=== PATIENT | female | born 1955 | race Caucasian/White ===

== ENCOUNTER 2018-05-22 01:57 | Outpatient (CLI) | payer MEDICARE, BC, SELFPAY ==
[2018-05-22 08:04] LABS: HCT 44.4 % (36.0-46.0); HGB 14.6 g/dL (12.0-15.5); Mean Corp. HGB Concentration 32.9 g/dL (32.0-36.0); Mean Corpuscular Hemoglobin 29.7 pg (27.0-33.0); Mean Corpuscular Volume 90.2 fL (80-95); Mean Platelet Volume 10.6 fL (8.0-11.0); Platelet Count 235 x1000/uL (130-400); RBC 4.92 m/cumm (4.00-5.20); RBC Distribution Width 13.2 % (11.7-14.6); White Blood Cell Count 4.94 k/cumm (4.4-10.8)
[2018-05-22 08:30] LABS: ALT 75 U/L (12-78); AST 33 U/L (15-37); Albumin 3.9 g/dL (3.4-5.0); Alkaline Phosphatase 163 U/L (46-116); Anion Gap 11.5 mmol/L (3-11); BUN 19 mg/dL (7-18); Bilirubin, Total 0.4 mg/dL (0.2-1.0); CO2 26.5 mmol/L (21.0-32.0); CREATININE 0.88 mg/dL (0.55-1.02); Calcium 9.4 mg/dL (8.5-10.1); Chloride 105 mmol/L (98-107); Cholesterol 251 mg/dL (50-200); Glucose 97 mg/dL (70-100); HDL Cholesterol 64 mg/dL (40-60); LDL CHOLESTEROL 165 mg/dL (<100); Potassium 4.4 mmol/L (3.5-5.1); Sodium 143 mmol/L (136-145); Total Protein 7.7 g/dL (6.4-8.2); Triglyceride 81 mg/dL (30-150)
[2018-05-22 14:02] LABS: GGT 317 U/L (5-55)
== END 2018-05-22 02:17 ==
PROVIDERS: PCP Family Medicine; Visit Provider Family Medicine
DX: R74.8 Abnormal levels of other serum enzymes (principal); E03.9 Hypothyroidism, unspecified; Z13.6 Encounter for screening for cardiovascular disorders
CPT/HCPCS: 36415; 80053; 80061; 83721; 85027; 82977

== ENCOUNTER 2018-05-31 01:18 | Outpatient (CLI) | payer MEDICARE, BC, SELFPAY ==
--- NOTE | 2018-05-31 07:02 | DI.US_ITS ---
SYMPTOM/DIAGNOSIS: ELEVATED ALK PHOS AND GGT, R74.8 ABDOMEN ULTRASOUND: Routine examination was performed. The aorta and IVC are unremarkable. The liver shows increased echogenicity consistent with fatty infiltration. No hepatic mass is seen. The gallbladder, common duct and spleen and kidneys are unremarkable. There is limited visualization of the head and tail of the pancreas due to body habitus and overlying bowel. The remainder of the visualized pancreas appears unremarkable. IMPRESSION: Findings consistent with hepatic steatosis.
== END 2018-05-31 01:38 ==
PROVIDERS: PCP Family Medicine; Visit Provider Family Medicine
DX: R74.8 Abnormal levels of other serum enzymes (principal); K76.0 Fatty (change of) liver, not elsewhere classified
CPT/HCPCS: 76700

== ENCOUNTER 2018-06-12 01:34 | Outpatient (CLI) | payer MEDICARE, BC, SELFPAY ==
[2018-06-12 08:27] LABS: GGT 162 U/L (5-55)
[2018-06-18 12:30] LABS: Mitochondrial Ab, M2 <0.1 U
== END 2018-06-12 01:54 ==
PROVIDERS: PCP Family Medicine; Visit Provider Family Medicine
DX: R74.8 Abnormal levels of other serum enzymes (principal); K74.3 Primary biliary cirrhosis
CPT/HCPCS: 36415; 83516; 82977

== ENCOUNTER 2019-02-12 00:40 | Outpatient (CLI) | payer MEDICARE, BC, SELFPAY ==
--- NOTE | 2019-02-12 15:10 | DI.MAMMO_ITS ---
EXAM: MG MAMMO SCREENING CLINICAL HISTORY: kurldraenG21.31. TECHNIQUE: Bilateral full field digital CC and MLO mammographic images were obtained with 3D tomosyn thesis and utilizing computer aided detection (CAD). COMPARISON: There are multiple priors with the most recent from 12/12/2016. FINDINGS: Masses/Architectural Distortion: None seen. Microcalcifications: No suspicious pleomorphic-type are seen. IMPRESSION: 1. No significant interval change with no specific features of malignancy noted. 2. Unless there is more urgent need, screening mammography is recommended, as per [employer] guidelines. ACR BI-RAD Category- 1 Negative Breast Density - Category C - Heterogeneously dense The mammogram demonstrates the patient's breast tissue is dense. Dense breast tissue is very common a nd is not abnormal but dense breast tissue can make it harder to find cancer on a mammogram. Also, de nse breast tissue may increase their breast cancer risk. This information about the result of the [facility] mogram report was provided to the patient to raise their awareness. Use this report when you speak wi th the patient about their risks for breast cancer, which includes their family history. At that time , you may recommend for more screening tests (Ultrasound or MRI) as they might be useful based on the ir risk. A negative radiographic report should not delay biopsy if a dominant or clinically suspicious mass is present. Up to ten percent of cancers are not identified on mammography. A negative report may reinforce clinical impression. Adenosis and dense breasts may obscure an underlying neoplasm. False positive reports average 6 to 10%.
--- NOTE | 2019-02-12 15:10 | DI.DEXA_ITS ---
EXAM: XR DEXA BONE DENSITY W/WO GAETANO INDICATION: xSCREENING FOR OSTEOPOROSIS Z78.0. COMPARISON: 05/03/2004 TECHNIQUE: 2D digital imaging was performed. FINDINGS: The lateral spine film shows no compression deformities. Evaluation of the left hip shows a total T-score of -1.0 and Z-score 0.3, this is within normal limit s. This compares with a total T-score of 0.2 from 2004. Evaluation of the lumbar spine shows a total T-score of -0.1 and a Z-score of 1.8. This is within no rmal limits. This compares with a total T-score of 1.2 from 2004. IMPRESSION: No evidence of osteoporosis.
== END 2019-02-12 01:00 ==
PROVIDERS: PCP Family Medicine; Visit Provider Family Medicine
DX: Z12.31 Encounter for screening mammogram for malignant neoplasm of breast (principal); Z13.820 Encounter for screening for osteoporosis; Z78.0 Asymptomatic menopausal state
CPT/HCPCS: 77063; 77067; 77080

== ENCOUNTER → 2019-03-29 08:49 | Outpatient (BNVA) | payer MEDICARE, BC, SELFPAY | PROVIDERS: PCP Family Medicine; Referring Provider Family Medicine; Visit Provider Physical Therapy Assistant | DX: Z12.11 Encounter for screening for malignant neoplasm of colon (principal) ==

== ENCOUNTER 2019-04-22 07:15 | Day surgery (SDC) | payer MEDICARE, BC, SELFPAY ==
[2019-04-22 07:40] VITALS: BP 137/82; PULSE 105; RESP 18; TEMP 36.3; O2SAT 96
[2019-04-22] MEDS: Lactated Ringers 1,000 ML 80 ML IV (07:50)
--- NOTE | 2019-04-22 08:19 | W.COLOREPORT ---
Date of service: 04/22/19 Time of Service: 09:18 Colonoscopy Report Date of procedure: 04/22/19 Pre-op diagnosis general: Colon Cancer Screening Post-op diagnosis procedure note: other (Landry-diverticulosis, polyps, internal hemorrhoids) Procedure: Colonoscopy with bx Surgeon: Blanca Kirby Anesthesia proc note operative: other (General/ ASA 2/ Khushboo Dominguez, KATHARINE) Estimated blood loss (mL): 5 Pathology: other (Transverse bx, sigmoid polyp) Complications: None Disposition: same day Indications: Mrs. Chatman is a pleasant 64-year-old female who was seen in the office for screening colonoscopy. Her last colonoscopy was in 2002 and was normal. She has no family history of colon cancer. Risks, benefits and complications have been reviewed. Complications include but are not limited to bleeding, pain, perforation, missed small lesion/polyp, sore throat, aspiration and adverse reaction to the medications. Questions were entertained and answered to their satisfaction and they wished to proceed. No guarantees were given or implied. Prep: Miralax/Dulcolax Procedure Start Time: 08:38 Procedure End Time: 09:14 Retraction Time: 25 minutes Findings: Landry-diverticulosis Sigmoid polyp ? Transverse polyp Procedure Description: After informed consent was obtained the patient was taken to the procedure room and placed in a left decubitous position. Monitors were applied and a time out was done. The patients name, date of , procedure, allergies to medications and metal in their body was reviewed. The patient was then sedated. Once sedated and comfortable a rectal exam was done. External exam was normal. Internal exam revealed a normal sphincter tone and no palpable masses. The scope was then introduced and retro-flexed. No internal hemorrhoids were identified. The scope was then advanced to the cecum without difficulty. The TI and appendiceal orifice were identified. The prep was adequate. The scope was then slowly retracted over 25 minutes back into the rectum. Polyps were removed in the transverse colon and in the sigmoid colon with cold forceps. There was landry-diverticulosis noted. The scope was removed and the patient was woken up and taken back to Same day surgery in stable condition. The patient tolerated the procedure well and there were no immediate complications. Follow up: The patient should follow up in 5 years unless they develop changes in bowel habits or other new gastrointestinal complaints.
--- NOTE | 2019-04-22 08:20 | W.PM.DSUDISC ---
Discharge Plan Disposition Patient Disposition: HOME Condition: Good Discharge Details Reason For Visit: Colonoscopy Attending Provider: Blanca Kirby Primary Care Provider: Prashant Rodrigues Home Meds and New Rx's Prescriptions: Continued trazodone 50 mg tablet 50 mg PO HS Qty: 90 RF: 4 levothyroxine 137 mcg capsule 137 mcg PO DAILY Qty: 90 RF: 3 venlafaxine [Effexor XR] 150 mg capsule,extended release 24hr 150 mg PO DAILY Qty: 90 RF: 3 Discontinued polyethylene glycol 3350 17 gram/dose powder 238 g PO ONCE Qty: 238 RF: 0 bisacodyl [Dulcolax (bisacodyl)] 5 mg tablet,delayed release (DR/EC) 5 mg PO ONCE Qty: 4 RF: 0 Discharge Instructions Instructions: Diverticulosis (DC) Additional Instructions: Findings: Diverticulosis Polyps x 2 (most likely benign) Follow up: Depends on final pathology Please call if you develop: fevers >101.5 Nausea or Vomiting Abdominal pain that is not transient DAY SURGERY UNIT POST ENDOSCOPY INSTRUCTIONS 1. Because there will be medication in your system for the next 24 hours, you may feel a little sleepy. Your coordination will be affected. Therefore: a. Do not drive or operate dangerous equipment for 24 hours. b. Do not drink alcohol beverages for 24 hours (not even beer). c. Plan to go home and rest for the day. 2. Generally there are no restrictions on your activity after a day or so has gone by, but you may feel a bit fatigued for a few days. 3 After you arrive home you may have a light meal and return to a normal diet as you can tolerate it without feeling sick to your stomach. 4. After surgery, you may feel pain or discomfort. This should be only transient, but if it persists please contact your doctor. 5. If there are any questions regarding the findings of your procedure, please feel free to contact your doctor. 6. If you are unable to contact your doctor with a problem, contact the hospital at [phone]. 7. Continue all your regular medications unless directed otherwise. I understand the above instructions and have no questions. Signature of Patient or Responsible Adult Escort Date/Time Name of Responsible Adult Escort Signature of Nurse Date/Time Activity:: Activity as Tolerated Diet:: High Fiber Diet Discharge Orders Discharge Orders: Discharge Order (Routine); Ordered 04/22/19 Ordered By: Blanca Kirby DS: Diagnosis Discharge Diagnosis (1) S/P colonoscopy: Status: Acute
--- NOTE | 2019-04-22 09:07 | BOWEL_PTH ---
PATIENT: Haydee Chatman LOC: [facility] U#:[id number] AGE/SX: 64/F ROOM: RE04/22/[address]: Blanca Kirby MD : [id number] BED: DIS: 04/22/2019 SPEC #: [id number] RECD: 04/22/19 12:59 STATUS: [place] REQ #: [id number] NETTIE: 04/22/19 09:[address]: Blanca Kirby DEPT: Surgical Specimen RECD BY: Jodi Huddleston ENTERED: 04/22/19 13:00 SP TYPE: Bowel OTHR DR: Prashant Rodrigues MD Tissues: 1 - BIOPSY BOWEL 2 - BIOPSY BOWEL Procedures: GROSS AND MICRO LEVEL 4 Comments: [id number]
[2019-04-22 09:55] VITALS: BP 112/74; PULSE 61; RESP 18; TEMP 36.1; O2SAT 95
== END 2019-04-22 10:25 | disposition home or self-care (01) ==
PROVIDERS: PCP Family Medicine; Visit Provider Surgery
PROC: 0DJD8ZZ Inspection of Lower Intestinal Tract, Via Natural or Artificial Opening Endoscopic (ICD-10-PCS; CPT 45378; principal; 2019-04-22 08:30)
DX: Z12.11 Encounter for screening for malignant neoplasm of colon (principal); D12.3 Benign neoplasm of transverse colon; K63.5 Polyp of colon; K57.30 Diverticulosis of large intestine without perforation or abscess without bleeding
CPT/HCPCS: 45380; 88305; J2405

== ENCOUNTER 2020-01-10 00:38 | Outpatient (CLI) | payer MEDICARE, BC, SELFPAY ==
[2020-01-10 13:30] LABS: ALT 37 U/L (14-59); AST 20 U/L (15-37); Albumin 4.1 g/dL (3.4-5.0); Alkaline Phosphatase 105 U/L (46-116); Anion Gap 1.8 mmol/L (3-11); BUN 19 mg/dL (7-18); Bilirubin, Total 0.4 mg/dL (0.2-1.0); CO2 31.2 mmol/L (21.0-32.0); CREATININE 0.85 mg/dL (0.55-1.02); Calcium 9.2 mg/dL (8.5-10.1); Calculated LDL 168 mg/dL (<100); Chloride 109 mmol/L (98-107); Cholesterol 239 mg/dL (<200); Glucose 98 mg/dL (74-106); HDL Cholesterol 53 mg/dL (40-60); Potassium 4.7 mmol/L (3.5-5.1); Sodium 142 mmol/L (136-145); Total Protein 7.4 g/dL (6.4-8.2); Triglyceride 91 mg/dL (<150)
== END 2020-01-10 00:58 ==
PROVIDERS: PCP Family Medicine; Visit Provider Family Medicine
DX: E03.9 Hypothyroidism, unspecified (principal)
CPT/HCPCS: 36415; 80053; 80061; 84443

== ENCOUNTER 2020-09-01 02:20 | Outpatient (CLI) | payer MEDICARE, BC, SELFPAY ==
[2020-09-02 11:19] LABS: COVID-19 RT-PCR UVMMC Result Negative (Negative)
== END 2020-09-01 02:21 | disposition home or self-care (01) ==
LOC: LBO 02:20
PROVIDERS: PCP Family Medicine; Visit Provider Nurse Practitioner Family
DX: Z20.822 Contact with and (suspected) exposure to COVID-19 (principal)
CPT/HCPCS: U0003; U0005

== ENCOUNTER 2021-02-01 02:43 | Outpatient (CLI) | payer MEDICARE, BC, SELFPAY ==
[2021-02-01 09:30] LABS: ALT 33 U/L (14-59); AST 22 U/L (15-37); Alkaline Phosphatase 102 U/L (46-116); Anion Gap 7.4 mmol/L (3-11); BUN 15 mg/dL (7-18); Bilirubin, Total 0.5 mg/dL (0.2-1.0); CO2 29.6 mmol/L (21.0-32.0); CREATININE 0.9 mg/dL (0.55-1.02); Calcium 9.2 mg/dL (8.5-10.1); Calculated LDL 153 mg/dL (<100); Chloride 109 mmol/L (98-107); Cholesterol 227 mg/dL (<200); Glucose 99 mg/dL (74-106); HDL Cholesterol 53 mg/dL (40-60); Potassium 4.8 mmol/L (3.5-5.1); Sodium 146 mmol/L (136-145); Total Protein 7.6 g/dL (6.4-8.2); Triglyceride 108 mg/dL (<150)
[2021-02-02 10:28] LABS: Hepatitis C Ab w Rflx HCV PCR Negative (Negative)
== END 2021-02-01 02:44 | disposition home or self-care (01) ==
LOC: LBO 02:43
PROVIDERS: PCP Family Medicine; Visit Provider Family Medicine
DX: E03.9 Hypothyroidism, unspecified (principal); E78.00 Pure hypercholesterolemia, unspecified; K76.0 Fatty (change of) liver, not elsewhere classified
CPT/HCPCS: 36415; 80053; 80061; 86803; 84443

== ENCOUNTER 2021-02-22 00:53 | Outpatient (CLI) | payer MEDICARE, BC, SELFPAY ==
--- NOTE | 2021-02-22 06:30 | DI.US_ITS ---
Exam(s) US ABDOMEN EXAM: US ABDOMEN INDICATION: RUQ fullness,RUQ ABD PAIN,STEATOSIS OF LIVER, R10.11,K76.0 COMPARISON: US US ABDOMEN from 05/31/2018 TECHNIQUE: Ultrasound abdomen performed using standard protocol FINDINGS: Abdominal ultrasound was performed according to the usual protocol. The liver is normal in size and shape. No focal hepatic lesion seen. There is no evidence of cholelithiasis or biliary dilatation. No gallbladder wall thickening or peric holecystic fluid collection. Pancreas appears intact as visualized. Spleen is unremarkable in appearance with no focal lesion. Kidneys are normal in size and shape. No renal mass, hydronephrosis, or nephrolithiasis. Abdominal aorta and IVC are of normal diameter. IMPRESSION: Negative abdominal ultrasound .
== END 2021-02-22 01:13 ==
PROVIDERS: PCP Family Medicine; Visit Provider Family Medicine
DX: K76.0 Fatty (change of) liver, not elsewhere classified (principal); R10.11 Right upper quadrant pain
CPT/HCPCS: 76700

== ENCOUNTER 2022-01-12 02:37 | Outpatient (CLI) | payer MEDICARE, BC, SELFPAY ==
[2022-01-12 12:30] LABS: Abs Immature Grans 0.06 10^3/uL (0.0-0.06); Absolute Basophil Count 0.04 10^3/uL (0.0-0.2); Absolute Eosinophil Count 0.24 10^3/uL (0.0-0.7); Absolute Lymphocyte Count 2.01 10^3/uL (1.2-3.4); Absolute Monocyte Count 0.47 10^3/uL (0.1-0.8); Absolute Neutrophil Count 2.69 10^3/uL (1.2-6.7); Basophils % 0.7; Eosinophils % 4.4; HCT 40.8 % (36.0-46.0); HGB 13.6 g/dL (11.2-15.7); Immature Grans % 1.1; Lymphocytes % 36.5; MCH 29.5 pg (27.0-33.0); MCHC 33.3 % (32.0-36.0); MCV 89 fL (80-95); MPV 11.1 fL (8.0-11.0); Monocytes % 8.5; Neutrophils % 48.8; Platelet Count 222 10^3/uL (130-400); RBC 4.61 10^6/uL (3.93-5.22); RDW 12.6 % (11.7-14.6); RDW-SD 41.1 fL; WBC 5.51 10^3/uL (4.4-10.8)
[2022-01-12 13:04] LABS: ALT 32 U/L (14-59); AST 26 U/L (15-37); Albumin 3.8 g/dL (3.4-5.0); Alkaline Phosphatase 80 U/L (46-116); Anion Gap 9.2 mmol/L (3-11); BUN 20 mg/dL (7-18); Bilirubin, Total 0.4 mg/dL (0.2-1.0); CO2 25.8 mmol/L (21.0-32.0); CREATININE 0.8 mg/dL (0.55-1.02); Calculated LDL 123 mg/dL (<100); Chloride 109 mmol/L (98-107); Cholesterol 201 mg/dL (<200); Estimated GFR 80.21 (mL/min/1.73m2); Glucose 93 mg/dL (74-106); HDL Cholesterol 63 mg/dL (40-60); Potassium 4.1 mmol/L (3.5-5.1); Sodium 144 mmol/L (136-145); Total Protein 7.5 g/dL (6.4-8.2); Triglyceride 75 mg/dL (<150)
== END 2022-01-12 02:38 | disposition home or self-care (01) ==
LOC: LOS 02:38
PROVIDERS: PCP Family Medicine; Visit Provider Family Medicine
DX: E03.9 Hypothyroidism, unspecified (principal); D64.9 Anemia, unspecified; K76.0 Fatty (change of) liver, not elsewhere classified; Z00.00 Encounter for general adult medical examination without abnormal findings; E78.00 Pure hypercholesterolemia, unspecified
CPT/HCPCS: 36415; 80053; 80061; 84443; 85025

== ENCOUNTER → 2022-02-21 01:29 | Outpatient (CLI) | payer MEDICARE, BC, SELFPAY ==
--- NOTE | 2022-02-21 06:45 | DI.MAMMO_ITS ---
Exam(s) MAMMO SCREENING EXAM: MAMMO SCREENING CLINICAL HISTORY: screening,z12.39 TECHNIQUE: Mammograms were interpreted according to the usual protocol including computer analysis w [employer] CAD system, tomosynthesis and C-view imaging. COMPARISON: 2012 through 2018 FINDINGS: The breasts are composed of heterogeneously dense fibroglandular densities, Breast Density category C . No suspicious masses or suspicious microcalcifications are seen. There are stable benign-appearing n odules bilaterally. No skin thickening or abnormal axillary lymph nodes are seen. There has been no significant change from prior exams. IMPRESSION: BI-RADS Category 2 - Negative Mammogram with benign findings. Yearly screening mammography is recommended. Breast Density Category C, heterogeneously Dense. The mammogram demonstrates the patient's breast tissue is dense. Dense breast tissue is very common a nd is not abnormal but dense breast tissue can make it harder to find cancer on a mammogram. Also, de nse breast tissue may increase breast cancer risk. This information about the result of the mammogram report was provided to the patient to raise their awareness. Use this report when you speak with the patient about their risks for breast cancer, which includes their family history. At that time, you may recommend additional screening tests (Ultrasound or MRI) as they might be useful based on their r isk. A negative radiographic report should not delay biopsy if a dominant or clinically suspicious mass is present. Up to ten percent of cancers are not identified on mammography. A negative report may reinforce clinical impression. Adenosis and dense breasts may obscure an underlying neoplasm. False positive reports average 6 to 10%.
== END ==
PROVIDERS: PCP Family Medicine; Visit Provider Family Medicine
DX: Z12.31 Encounter for screening mammogram for malignant neoplasm of breast (principal)
CPT/HCPCS: 77063; 77067

== ENCOUNTER → 2022-08-04 13:21 | Outpatient (BNVA) | payer MEDICARE, BC, SELFPAY | PROVIDERS: PCP Family Medicine; Referring Provider Family Medicine; Visit Provider Physical Therapy Assistant | DX: Z12.11 Encounter for screening for malignant neoplasm of colon (principal); Z86.010 Personal history of colon polyps ==

== ENCOUNTER 2023-01-12 03:35 | Outpatient (CLI) | payer MEDICARE, BC, SELFPAY ==
[2023-01-12 11:44] LABS: TSH (W/Ref FT4) 1.33 uIU/mL (0.36-3.74)
== END 2023-01-12 03:36 | disposition home or self-care (01) ==
LOC: LBO 03:35
PROVIDERS: PCP Family Medicine; Visit Provider Family Medicine
DX: E03.9 Hypothyroidism, unspecified (principal)
CPT/HCPCS: 36415; 84443

== ENCOUNTER → 2023-05-25 13:41 | Outpatient (BNVA) | payer MEDICARE, BC, SELFPAY | PROVIDERS: PCP Family Medicine; Referring Provider Family Medicine; Visit Provider Physical Therapy Assistant | DX: Z12.11 Encounter for screening for malignant neoplasm of colon (principal); Z86.010 Personal history of colon polyps ==

== ENCOUNTER 2023-06-02 09:01 | Day surgery (SDC) | payer MEDICARE, BC, SELFPAY ==
--- NOTE | 2023-05-29 15:48 | DSE_ITS ---
DS: Diagnosis Discharge Diagnosis (1) Serrated adenoma of colon: Status: Acute Asessment and Plan: The patient is seen and examined after their colonoscopy.? The patient has been able to pass gas.? They are not having abdominal pain.? They have been able to tolerate liquids and a snack.? They do not have any nausea or vomiting.? They are not having any chest pain or shortness of breath.??? They are not having any rectal bleeding. Their vital signs have been stable-see nursing notes. We discussed findings during their colonoscopy, and any biopsies that were done/polyps that were removed. The patient will be sent a letter with any biopsy results, and when to repeat the colonoscopy.-see discharge instructions. Patient was given explicit instructions to follow-up regarding colonoscopy-refer to discharge instructions.? We reviewed resumption of medications. Patient verbalized understanding and discharged in stable and satisfactory condition- See nursing notes. (2) Esophageal reflux: Status: Chronic (3) Hypothyroidism: Status: Chronic (4) Diverticulosis of colon without diverticulitis: (5) Internal hemorrhoids without complication: (6) Anxiety: (7) History of alcohol dependence: Discharge Plan Disposition Patient Disposition: Home Condition: Good Discharge Details Reason For Visit: colon scope Attending Provider: Gladys Sharma Primary Care Provider: Amber Toney Home Meds and New Rx's Prescriptions: Continued trazodone 50 mg tablet 50 mg PO HS PRN (Reason: insomnia) Qty: 90 3RF venlafaxine [Effexor XR] 150 mg capsule,extended release 24hr 150 mg PO DAILY Qty: 90 3RF levothyroxine [Synthroid] 137 mcg tablet 137 mcg PO DAILY Qty: 90 3RF Discontinued polyethylene glycol 3350 17 gram/dose powder 238 g PO ONCE Qty: 238 0RF Rx Instructions: take per colonoscopy instructions bisacodyl [Dulcolax (bisacodyl)] 5 mg tablet,delayed release (DR/EC) 5 mg PO ONCE Qty: 8 0RF Rx Instructions: take per colonoscopy instructions Discharge Instructions Additional Instructions: DSU Colonoscopy Post- Op Instructions Instructions for Everyone who is given Anesthesia: For your safety, please do the following for the next twenty-four (24) hours: *Do Not operate a motor vehicle (car, truck, motorcycle, etc.) *Do Not drink alcoholic beverages or use any recreational drugs for the first 24 hours or while taking pain medications. The medications in your body may have a reaction that can be dangerous. *Do Not make any important decisions or sign any important papers. Findings: Follow up: 1. No lifting over 20 pounds or strenuous activity for the first 24 hours after your procedure. After 24 hours there are no restrictions on your activity but you may feel fatigued for a few days. 2. After you arrive home you may have a light meal and return to your normal diet as you can tolerate it without feeling sick to your stomach. 3. You may have a bloated, gaseous feeling in your belly (abdomen) after a colonoscopy. Passing gas and belching will help. Walking or lying down on your left side with your knees flexed may relieve the discomfort. Call the office at [phone] (Office) or [phone] (Hospital) right away if you notice any of the following: a.Vomiting of blood or ?coffee ground stools?. b.Rectal bleeding 1Tbsp, blood clots or continuous bleeding. c.Severe belly (abdominal) pain. d.A hard distended belly (abdomen) and an inability to pass gas. 4. Please don?t expect to have a normal BM (bowel movement) for 2-3 days after your procedure. 5. If there are questions regarding the findings of your procedure, please co ntact your doctor 6. If you are unable to contact your doctor with a problem, contact the hospital at [phone]. 7. Continue all your regular medications unless directed otherwise. I understand the above instructions and have no questions. Signature of Patient or Adult Escort Name of Responsible Adult Escort Signature of Nurse Date/Time Activity:: see above Diet:: see above Discharge Orders Discharge Orders: Discharge Order (Routine); Ordered 06/02/23 Ordered By: Gladys Sharma DS: Summary Quality:SDOH Health Related Social Needs: No Data to Display PFSH All Active Problems (Updated 05/29/23 @ 15:49 by Gladys Sharma, DO) Serrated adenoma of colon (Acute) Lipoma of face (Acute) Screening for colon cancer (Acute) Depressive disorder (Chronic) incest survivor; managed with venlafaxine Esophageal reflux (Chronic) Hypothyroidism (Chronic 11/05/12) Medical History Anxiety Diverticulosis of colon without diverticulitis History of alcohol dependence (12/26/17) Internal hemorrhoids without complication Rosacea Surgical History History of bilateral ligation of fallopian tubes S/P colonoscopy (~04/22/19) [address] [place] [address] Status post dilation and curettage Family History Mother , 59 Adopted Bladder cancer Father , 85 Heart disease CML (chronic myelocytic leukemia) Brother Essential hypertension Maternal Grandfather Heart disease Maternal Grandmother , childbirth No problems noted. Brother Essential hypertension Heart disease Hyperlipidemia Brother No problems noted. Paternal Grandfather , 71 Diabetes Heart disease Paternal Grandmother , 80s Cancer blood Son No problems noted. Daughter No problems noted. 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 Pets and animals: No Sexually active: Yes Do you think of yourself as: straight/heterosexual Current gender identity: female and decline to answer What is your relationship status?: How often do you talk on the phone with friends or family?: twice per week How often do you get together with friends or relatives?: once per week How often do you attend rastafari or voodoo services?: 1-3 times per year Do you belong to any clubs or organized social groups?: no Panel score (0-1 are the most socially isolated patients): 2 NHANES result reviewed/action taken: Yes What type of physical activity do you participate in: none Duration: 15-30 minutes/day Frequency: 3-4 times per week Alcira/Samaritan: Uatsdin Special alcira needs: No Seatbelt use: always Helmet use: Yes Helmet use: never Drive intox or ride w/intox minibus driver: No Water heater temp set <120 deg: Yes Working smoke detector in home: Yes Fire extinguisher in home: Yes Carbon monox detector in home: Yes Firearms in home: No Do you feel safe at home: Yes Do you feel safe in your relationship?: Yes Female Reproductive History Menstrual Menopause type: natural Date of menopause: 05/15/03 History History 2 Para Hx # Term Pregnancies 2 Multiple births Hx # Pregnancies Ectopic pregnancies AB induced Hx Number of Living Children AB spontaneous
--- NOTE | 2023-05-29 15:50 | COLE_ITS ---
Colonoscopy Report Pre-op diagnosis general: Serrated adenoma in 2019 Surgeon: Gladys Sharma Anesthesia Type: General:No Airway Complications: None Disposition: same day Prep: Miralax/Dulcolax Procedure Description: After informed consent was obtained the patient was taken to the procedure room and placed in a left decubitous position. Monitors were applied and a time out was done. The patients name, date of , procedure, allergies to medications and metal in their body was reviewed. The patient was then sedated. Once sedated and comfortable a rectal exam was done. External exam was normal. Internal exam revealed a normal sphincter tone and no palpable masses. The prostate []. The scope was then introduced and retrofelexed. [] internal hemorrhoids were identified. The scope was then advanced to the cecum [] difficulty. The TI and appendiceal orifice were identified. The prep was []. The scope was then slowly retracted over [] minutes back into the rectum. Polyps were removed at []. The scope was removed and the patient was woken up and taken back to Same day surgery in stable condition. The patient tolerated the procedure well and there were no immediate co mplications. Follow up: The patient should follow up in [] years unless they develop changes in bowel habits or other new gastrointestinal complaints.
--- NOTE | 2023-06-01 10:23 | PDOC.DSDIS_ITS ---
Date of service: 06/02/23 Time of Service: 11:05 Discharge Plan Disposition Patient Disposition: Home Condition: Good Discharge Details Reason For Visit: colon scope Attending Provider: Gladys Sharma Primary Care Provider: Amber Toney Home Meds and New Rx's Prescriptions: New metaxalone 800 mg tablet 800 mg PO QID PRNQty: 30 0RF Continued trazodone 50 mg tablet 50 mg PO HS PRN (Reason: insomnia) Qty: 90 3RF venlafaxine [Effexor XR] 150 mg capsule,extended release 24hr 150 mg PO DAILY Qty: 90 3RF levothyroxine [Synthroid] 137 mcg tablet 137 mcg PO DAILY Qty: 90 3RF Discontinued polyethylene glycol 3350 17 gram/dose powder 238 g PO ONCE Qty: 238 0RF Rx Instructions: take per colonoscopy instructions bisacodyl [Dulcolax (bisacodyl)] 5 mg tablet,delayed release (DR/EC) 5 mg PO ONCE Qty: 8 0RF Rx Instructions: take per colonoscopy instructions Discharge Instructions Additional Instructions: DSU Colonoscopy Post- Op Instructions Instructions for Everyone who is given Anesthesia: For your safety, please do the following for the next twenty-four (24) hours: *Do Not operate a motor vehicle (car, truck, motorcycle, etc.) *Do Not drink alcoholic beverages or use any recreational drugs for the first 24 hours or while taking pain medications. The medications in your body may have a reaction that can be dangerous. *Do Not make any important decisions or sign any important papers. Findings: small polyp diverticula Neck: alternate ibuprofen and tylenol ibuprofen 600mg w/ food every 6hrs tylenol 1000mg every 8hrs skelaxin every 6hrs as needed ice Follow up: My office will send you a letter in 2 to 3 weeks time with the results of the biopsy and when we want you to repeat the colonoscopy, most likely 5 years time. 1. No lifting over 20 pounds or strenuous activity for the first 24 hours after your procedure. After 24 hours there are no restrictions on your activity but you may feel fatigued for a few days. 2. After you arrive home you may have a light meal and return to your normal diet as you can tolerate it without feeling sick to your stomach. 3. You may have a bloated, gaseous feeling in your belly (abdomen) after a colonoscopy. Passing gas and belching will help. Walking or lying down on your left side with your knees flexed may relieve the discomfort. Call the office at [phone] (Office) or [phone] (Hospital) right away if you notice any of the following: a.Vomiting of blood or ?coffee ground stools?. b.Rectal bleeding 1Tbsp, blood clots or continuous bleeding. c.Severe belly (abdominal) pain. d.A hard distended belly (abdomen) and an inability to pass gas. 4. Please don?t expect to have a normal BM (bowel movement) for 2-3 days after your procedure. 5. If there are questions regarding the findings of your procedure, please contact your doctor 6. If you are unable to contact your doctor with a problem, contact the hospital at [phone]. 7. Continue all your regular medications unless directed otherwise. I understand the above instructions and have no questions. Signature of Patient or Adult Escort Name of Responsible Adult Escort Signature of Nurse Date/Time Activity:: see above Diet:: see above Discharge Orders Discharge Orders: Discharge Order (Routine); Ordered 06/02/23 Ordered By: Gladys Sharma DS: Diagnosis Discharge Diagnosis (1) Serrated adenoma of colon: Status: Acute (2) Esophageal reflux: Status: Chronic (3) Hypothyroidism: Status: Chronic (4) Diverticulosis of colon without diverticulitis: Asessment and Plan: The patient is seen and examined after their colonoscopy.? The patient has been able to pass gas.? They are not having abdominal pain.? They have been able to tolerate liquids and a snack.? They do not have any nausea or vomiting.? They are not having any chest pain or shortness of breath.??? They are not having any rectal bleeding. Their vital signs have been stable-see nursing notes. We discussed findings during their colonoscopy, and any biopsies that were done/polyps that were removed. The patient will be sent a letter with any biopsy results, and when to repeat the colonoscopy.-see discharge instructions. Patient was given explicit instructions to follow-up regarding colonoscopy-refer to discharge instructions.? We reviewed resumption of medications. Patient verbalized understanding and discharged in stable and satisfactory condition- See nursing notes. (5) Internal hemorrhoids without complication: (6) Anxiety:
--- NOTE | 2023-06-01 10:23 | COLE_ITS ---
Date of service: 06/02/23 Time of Service: 10:30 Colonoscopy Report Date of procedure: 06/02/23 Pre-op diagnosis general: Serrated adenoma Post-op diagnosis procedure note: other (pandiverticula/polyp/I. hemorrhoids ) Surgeon: Gladys Sharma Anesthesia Type: General:No Airway Estimated blood loss (mL): 1 Pathology: other Complications: None Disposition: same day Prep: Miralax/Dulcolax Retraction Time: 12 Procedure Description: After informed consent was obtained the patient was taken to the procedure room and placed in a left decubitous position. Monitors were applied and a time out was done. The patients name, date of , procedure, allergies to medications and metal in their body was reviewed. The patient was then sedated. Once sedated and comfortable a rectal exam was done. External exam was normal. Inte rnal exam revealed a normal sphincter tone and no palpable masses. The scope was then introduced and retrofelexed. No Internal hemorrhoids were identified, she does have some internal hemorrhoidal tags. The scope was then advanced to the cecum w/out difficulty. The TI and appendiceal orifice were identified. The prep was BBPS 3 in all segments for a total of 9. She had pandiverticular disease that extends all the way over to the cecum. There is no signs of active bleeding or infection. She had a 0.50 cm polyp at 50 cm. This is removed with a cold biting forcep. All specimen is retrieved and no bleeding is noted. There are no AVMs noted. The mucosa is pink and healthy with a normal vascular pattern. The scope was then slowly retracted over 12 minutes back into the rectum. The scope was removed and the patient was woken up and taken back to Same day surgery in stable condition. The patient tolerated the procedure well and there were no immediate complications. Follow up: The patient should follow up in 5 years unless they develop changes in bowel habits or other new gastrointestinal complaints.
[2023-06-02 09:23] VITALS: BP 141/79; PULSE 87; RESP 16; TEMP 36.6; O2SAT 96
[2023-06-02] MEDS: Lactated Ringers 1,000 ML 80 ML IV (09:26)
--- NOTE | 2023-06-02 09:35 | W.ANESPRE ---
General Info Date of Service Date Performed: 06/02/23 Height: 5 ft 7 in Weight: 73.6 kg Body Mass Index (BMI): 25.4 Surgical Procedure: Operation Date: 06/02/23 09:50 Proposed Procedure Side Surgeon lala Sharma, Meds Allergies and Home Medications Allergies Allergy/AdvReac Type Severity Reaction Status Date / Time iopamidol AdvReac Intermediate VOMITING Verified 06/02/23 09:12 Home Medication Medication Instructions Recorded trazodone 50 mg tablet 50 mg PO HS PRN insomnia #90 04/19/22 tab-caps venlafaxine 150 mg 150 mg PO DAILY #90 caps 10/03/22 capsule,extended release 24 hr (Effexor XR) Synthroid 137 mcg tablet 137 mcg PO DAILY #90 tabs 03/29/23 (levothyroxine) Current Visit Medications: Current Medications Generic Name Dose Route Start Last Admin Trade Name Freq PRN Reason Stop Dose Admin Hyoscyamine Sulfate 0.125 mg 06/02/23 03:40 Hyoscyamine 0.125 Mg Sl/Oral/Chew SL 07/02/23 03:39 DIRECTED PRN Ringer's Solution 1,000 mls @ 80 mls/hr 06/02/23 06:00 06/02/23 09:26 IV 06/02/23 23:59 80 mls/hr INFUSION RIRI Administration IV Miscellaneous Supplies 1 each 06/02/23 06:00 Iv Access IV 06/02/23 23:59 DIRECTED RIRI Ondansetron HCl 4 mg 06/02/23 03:40 Ondansetron 4 Mg/2 Ml Vial IVP 07/02/23 03:39 Q4H PRN PRN Nausea / Vomiting Sodium Chloride 0 ml 06/02/23 06:00 Normal Saline Flush 10 Ml Syr IV 06/02/23 23:59 PRN PRN Sodium Chloride 0 ml 06/02/23 06:00 Normal Saline 10 Ml Vial IJ 06/02/23 23:59 DIRECTED PRN Sterile Water 0 ml 06/02/23 06:00 Water,Injection,Sterile 10 Ml Vial IJ 06/02/23 23:59 DIRECTED PRN PFSH Active Problems Active Problems: Problem Status Onset Code Serrated adenoma of colon D12.6 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 Screening for colon cancer Z12.11 Depressive disorder F32.9 Esophageal reflux K21.9 Hypothyroidism 11/05/12 E03.9 Medical History Medical History Anxiety Diverticulosis of colon without diverticulitis History of alcohol dependence (12/26/17) Internal hemorrhoids without complication Rosacea Surgical History Surgical History History of bilateral ligation of fallopian tubes S/P colonoscopy (~04/22/19) 2003- Status post dilation and curettage Tobacco Smoking/Tobacco Use Status: Never Passive smoking exposure: Yes Second hand exposure: Yes Alcohol Alcohol Intake: former Details: Sober x 5+ years Substance Use Substance use: Never Substance use type: does not use Prental History History 2 Para Hx # Term Pregnancies 2 Multiple births Hx # Pregnancies Ectopic pregnancies AB induced Hx Number of Living Children AB spontaneous Vital Signs and Lab Results Vital Signs Most Recent Vital Signs in EMR: Most Recent Vital Signs Temp Pulse Resp BP Pulse Ox 36.6 C 87 16 141/79 H 96 06/02/23 09:23 06/02/23 09:23 06/02/23 09:23 06/02/23 09:23 06/02/23 09:23 Lab Results Blood Type / Crossmatch: No Data to Display Complete Blood Count: No Data to Display Complete Metabolic Panel: No Data to Display Liver Function Panel: No Data to Display Coagulation Panel: No Data to Display Cardiac Panel: No Data to Display Arterial Blood Gas: No Data to Display Venous Blood Gas: No Data to Display Pancreas Panel: No Data to Display Thyroid Panel: No Data to Display Infectious Disease: No Data to Display Blood Cultures: No Data to Display Toxicology Panel: No Data to Display Anesthesia Assessment and Plan Anesthesia History Personal History: No History of Anesthesia Complications Family History: No Family History of Anesthesia Complications Exercise Tolerance Exercise Tolerance: Metabolic Equivalents>4 Pertinent Negatives Pertinent Negatives: No Symptoms of GERD Cardiac & Pulmonary Exam Cardiac Exam: Normal S1/S2 Heart Sounds Pulmonary Exam: Clear Bilateral Breath Sounds Implantable Cardiac Device Does patient have a Pacemaker or an ICD?: No Airway Exam Known Difficult Airway: No Mallampati Class: 2 Mouth Opening: Normal (> 3cm) Thyromental Distance: Greater than 3 cm Neck Range of Motion: Limited ROM (neck muscle injury) Neck Circumference: Normal Teeth Condition: Normal Dentition ASA Classification ASA Score: ASA 2 Emergency Case?: No NPO Status NPO Status: NPO Clears >2 hours, Solids >8 hours Anesthesia Plan Resuscitation Status: Full Code Anesthesia Technique: General Anesthesia Airway Planned: Natural Airway Monitors Used: Standard Monitors
[2023-06-02 09:36] VITALS: BMI 25.4
--- NOTE | 2023-06-02 09:56 | BOWEL_PTH ---
PATIENT: Haydee Chatman LOC: [facility] U#:[id number] AGE/SX: 68/F ROOM: RE06/02/[address]: Gladys Sharma : 1955 BED: DIS: 06/02/2023 SPEC #: [id number] RECD: 06/02/23 12:53 STATUS: WOODROW REQ #: [id number] NETTIE: 06/02/23 09:[address]: Gladys Sharma DEPT: Surgical Specimen RECD BY: Jodi Huddleston ENTERED: 06/02/23 12:54 SP TYPE: Bowel OTHR DR: Amber oTney Tissues: 1 - BIOPSY BOWEL Procedures: GROSS AND MICRO LEVEL 4 Comments: [id number]
[2023-06-02 10:22] VITALS: BP 107/61; PULSE 74; RESP 16; TEMP 37; O2SAT 96
[2023-06-02] MEDS: Methocarbamol 750 MG TAB PO (10:45)
[2023-06-02 10:52] VITALS: BP 107/61; PULSE 74; RESP 16; TEMP 37; O2SAT 96
--- NOTE | 2023-06-02 11:10 | PDOC.DSDIS_ITS ---
Date of service: 06/02/23 Time of Service: 11:10 Discharge Plan Disposition Patient Disposition: Home Condition: Good Discharge Details Reason For Visit: colon scope Attending Provider: Gladys Sharma Primary Care Provider: Amber Toney Home Meds and New Rx's Prescriptions: New metaxalone 800 mg tablet 800 mg PO QID PRNQty: 30 0RF Continued trazodone 50 mg tablet 50 mg PO HS PRN (Reason: insomnia) Qty: 90 3RF venlafaxine [Effexor XR] 150 mg capsule,extended release 24hr 150 mg PO DAILY Qty: 90 3RF levothyroxine [Synthroid] 137 mcg tablet 137 mcg PO DAILY Qty: 90 3RF Discontinued polyethylene glycol 3350 17 gram/dose powder 238 g PO ONCE Qty: 238 0RF Rx Instructions: take per colonoscopy instructions bisacodyl [Dulcolax (bisacodyl)] 5 mg tablet,delayed release (DR/EC) 5 mg PO ONCE Qty: 8 0RF Rx Instructions: take per colonoscopy instructions Discharge Instructions Additional Instructions: DSU Colonoscopy Post- Op Instructions Instructions for Everyone who is given Anesthesia: For your safety, please do the following for the next twenty-four (24) hours: *Do Not operate a motor vehicle (car, truck, motorcycle, etc.) *Do Not drink alcoholic beverages or use any recreational drugs for the first 24 hours or while taking pain medications. The medications in your body may have a reaction that can be dangerous. *Do Not make any important decisions or sign any important papers. Findings: small polyp diverticula. Make sure you are moving your bowels on a regular basis and not straining. Consider starting a daily fiber supplement such as Metamucil. Neck: alternate ibuprofen and tylenol ibuprofen 600mg w/ food every 6hrs tylenol 1000mg every 8hrs skelaxin every 6hrs as needed ice Follow up: My office will send you a letter in 2 to 3 weeks time with the results of the biopsy and when we want you to repeat the colonoscopy, most likely 5 years time. 1. No lifting over 20 pounds or strenuous activity for the first 24 hours after your procedure. After 24 hours there are no restrictions on your activity but you may feel fatigued for a few days. 2. After you arrive home you may have a light meal and return to your normal diet as you can tolerate it without feeling sick to your stomach. 3. You may have a bloated, gaseous feeling in your belly (abdomen) after a colonoscopy. Passing gas and belching will help. Walking or lying down on your left side with your knees flexed may relieve the discomfort. Call the office at [phone] (Office) or [phone] (Hospital) right away i f you notice any of the following: a.Vomiting of blood or ?coffee ground stools?. b.Rectal bleeding 1Tbsp, blood clots or continuous bleeding. c.Severe belly (abdominal) pain. d.A hard distended belly (abdomen) and an inability to pass gas. 4. Please don?t expect to have a normal BM (bowel movement) for 2-3 days after your procedure. 5. If there are questions regarding the findings of your procedure, please contact your doctor 6. If you are unable to contact your doctor with a problem, contact the hospital at [phone]. 7. Continue all your regular medications unless directed otherwise. I understand the above instructions and have no questions. Signature of Patient or Adult Escort Name of Responsible Adult Escort Signature of Nurse Date/Time Activity:: see above Diet:: see above Discharge Orders Discharge Orders: Discharge Order (Routine); Ordered 06/02/23 Ordered By: Gladys Sharma DS: Diagnosis Discharge Diagnosis (1) Serrated adenoma of colon: Status: Acute (2) Esophageal reflux: Status: Chronic (3) Hypothyroidism: Status: Chronic (4) Diverticulosis of colon without diverticulitis: (5) Internal hemorrhoids without complication: (6) Anxiety:
--- NOTE | 2023-06-02 13:11 | W.ANESPOSTOP ---
Postoperative Evaluation Date, Time and Location Date Performed: 06/02/23 Time Performed: 13:11 Patient Location: Day Surgery Unit Vital Signs Most Recent Imported Vital Signs: Most Recent Vital Signs Temp Pulse Resp BP Pulse Ox 37.0 C 74 16 107/61 96 06/02/23 10:52 06/02/23 10:52 06/02/23 10:52 06/02/23 10:52 06/02/23 10:52 Pain Score Most Recent Pain Score: Most Recent Pain Score Pain Level 0 06/02/23 10:52 Assessment Mental Status: Awake (Alert & Oriented to Patient Baseline) Airway and Respiratory Function: Patent airway with normal (patient baseline) respiratory exam Cardiovascular Function: Hemodynamically Stable Hydration Status: Adequately Hydrated Nausea & Vomiting: No Nausea or Vomiting Pain: Pt. Denies Any Pain Peripheral Nerve Block: Patient did not receive a nerve block
== END 2023-06-02 11:30 | disposition home or self-care (01) ==
LOC: SUR 09:01
PROVIDERS: PCP Family Medicine; Visit Provider Surgery
PROC: 0DJD8ZZ Inspection of Lower Intestinal Tract, Via Natural or Artificial Opening Endoscopic (ICD-10-PCS; CPT 45378; principal; 2023-06-02 09:45)
DX: Z12.11 Encounter for screening for malignant neoplasm of colon (principal); D12.5 Benign neoplasm of sigmoid colon; K57.30 Diverticulosis of large intestine without perforation or abscess without bleeding; K64.8 Other hemorrhoids; Z86.010 Personal history of colon polyps; F32.9 Major depressive disorder, single episode, unspecified
CPT/HCPCS: 45380; 88305; J1885; J2405; J2704

== ENCOUNTER → 2023-06-07 01:37 | Outpatient (CLI) | payer MEDICARE, BC, SELFPAY ==
--- NOTE | 2023-06-07 10:11 | DI.RAD_ITS ---
Exam(s) XR CERVICAL SPINE COMP 4-5V EXAM: XR CERVICAL SPINE COMP 4-5V CLINICAL HISTORY: neck pain,m54.2. TECHNIQUE: 2D digital imaging was performed. Five views were performed. COMPARISON: No exams were available for comparison FINDINGS: BONES: No fracture or destructive lesion. Vertebral bodies are unremarkable. Mild facet degenerative changes. DISKS: Sidy-fn-[place] narrowing of the C 5 6 disc space. Endplate osteophytes projecting mainly an teriorly. No neural foraminal narrowing. The remaining intervertebral disc spaces are maintained. ALIGNMENT: Cervical spinal alignment is within normal limits. The odontoid and atlantoaxial articulat ions are normal. SOFT TISSUE: Normal. The lung apices are clear. IMPRESSION: Mild degenerative changes at C5-6. DATA REPOSITORY: RADIATION DOSE DELIVERED:
== END ==
PROVIDERS: PCP Family Medicine; Visit Provider Nurse Practitioner Family
DX: M54.2 Cervicalgia (principal)
CPT/HCPCS: 72050

== ENCOUNTER 2023-12-15 09:27 | Outpatient (REF) | payer MEDICARE, BC, SELFPAY ==
--- NOTE | 2023-12-15 09:30 | SKI_PTH ---
PATIENT: Haydee Chatman LOC: [facility] U#:[id number] AGE/SX: 68/F ROOM: RE12/15/[address]: ADA Fuentes : 1955 BED: DIS: 12/15/2023 SPEC #: [id number] RECD: 12/15/23 12:30 STATUS: WOODROW REQ #: [id number] NETTIE: 12/15/23 09:[address]: Li Johnson DEPT: Surgical Specimen RECD BY: Jodi Huddleston ENTERED: 12/15/23 12:31 SP TYPE: CHARLES PIPER DR: Amber Toney Tissues: 1 - SKIN BIOPSY(SHAVE/PUNCH) Procedures: IMMUNOPEROXIDASE STAIN SKIN LEVEL 4 Comments: [id number]
== END 2023-12-15 09:28 | disposition home or self-care (01) ==
LOC: LBN 09:27
PROVIDERS: PCP Family Medicine; Visit Provider Physical Therapy Assistant
DX: C43.71 Malignant melanoma of right lower limb, including hip (principal)
CPT/HCPCS: 88305; 88361

== ENCOUNTER → 2023-12-25 08:46 | Outpatient (BNVA) | payer MEDICARE, BC, SELFPAY | PROVIDERS: PCP Family Medicine; Referring Provider Family Medicine; Visit Provider Surgery | DX: Z48.817 Encounter for surgical aftercare following surgery on the skin and subcutaneous tissue (principal); Z48.02 Encounter for removal of sutures ==

== ENCOUNTER → 2023-12-28 11:34 | Outpatient (BNVA) | payer MEDICARE, BC, SELFPAY | PROVIDERS: PCP Family Medicine; Referring Provider Family Medicine; Visit Provider Surgery | DX: L57.0 Actinic keratosis (principal); Z48.02 Encounter for removal of sutures ==

== ENCOUNTER 2024-02-14 01:07 | Outpatient (CLI) | payer MEDICARE, BC, SELFPAY ==
--- NOTE | 2024-02-14 06:30 | DI.MAMMO_ITS ---
Exam(s) MAMMO SCREENING EXAM: MAMMO SCREENING CLINICAL HISTORY: screening,z12.39 TECHNIQUE: Mammograms were interpreted according to the usual protocol including computer analysis w [employer] CAD system, tomosynthesis and C-view imaging. COMPARISON: 2014 through 2021 FINDINGS: The breasts are composed of heterogeneously dense fibroglandular densities, Breast Density category C . No suspicious masses or suspicious microcalcifications are seen. No skin thickening or abnormal axillary lymph nodes are seen. There has been no significant change from prior exams. IMPRESSION: BI-RADS Category 1, Negative mammogram. Yearly screening mammography is recommended. Breast Density Category C, heterogeneously Dense. The mammogram demonstrates the patient's breast tissue is dense. Dense breast tissue is very common a nd is not abnormal but dense breast tissue can make it harder to find cancer on a mammogram. Also, de nse breast tissue may increase breast cancer risk. This information about the result of the mammogram report was provided to the patient to raise their awareness. Use this report when you speak with the patient about their risks for breast cancer, which includes their family history. At that time, you may recommend additional screening tests (Ultrasound or MRI) as they might be useful based on their r isk. A negative radiographic report should not delay biopsy if a dominant or clinically suspicious mass is present. Up to ten percent of cancers are not identified on mammography. A negative report may reinforce clinical impression. Adenosis and dense breasts may obscure an underlying neoplasm. False positive reports average 6 to 10%.
== END 2024-02-14 01:27 ==
LOC: DI 01:07
PROVIDERS: PCP Family Medicine; Visit Provider Family Medicine
DX: Z12.31 Encounter for screening mammogram for malignant neoplasm of breast (principal)
CPT/HCPCS: 77063; 77067

== ENCOUNTER 2024-03-18 01:30 | Outpatient (CLI) | payer MEDICARE, BC, SELFPAY ==
--- NOTE | 2024-03-18 06:30 | DI.MRI_ITS ---
Exam(s) MR LOWER JOINT RT WO EXAM: MR LOWER JOINT RT WO CLINICAL HISTORY: stable joint, post rt knee pain, ? hamstring. TECHNIQUE: Multiplanar multisequence MRI was performed. COMPARISON: No exams were available for comparison FINDINGS: BONES: There is no fracture or contusion pattern. JOINTS: In the medial patellofemoral joint, there is marked loss of the articular cartilage and subch ondral cysts. There is also mild thinning of the articular cartilage in the medial femoral tibial wendie int. No effusion is present. TENDONS: Extensor mechanism: The extensor mechanism is intact. Medial retinaculum: Unremarkable. Lateral retinaculum: Unremarkable. Popliteus: Unremarkable. MUSCLES: Unremarkable. MENISCI: There is degenerative signal seen in the posterior horn of the medial meniscus. In the body of the lateral meniscus, there is hyperintense signal which is seen and may represent a tear versus degeneration. SOFT TISSUES: There is fluid seen anterior to the patella consistent with a bursitis. Note is made o f a popliteal cyst. LIGAMENTS: Anterior Cruciate: Unremarkable. Posterior Cruciate: Unremarkable. Medial Collateral:Unremarkable. Lateral Collateral: There is fluid seen around the iliotibial band. The remainder of the lateral col lateral ligament complex is unremarkable. OTHER: IMPRESSION: 1. Findings suggestive of iliotibial band syndrome. 2. Degenerative changes seen in the knee particularly the patellofemoral joint and the medial femoral tibial joint. 3. Degeneration/tear of the lateral meniscus. Degeneration of the medial meniscus. 4. Prepatellar bursitis. 5. Small popliteal cyst. DATA REPOSITORY:
== END 2024-03-18 01:50 ==
PROVIDERS: PCP Family Medicine; Visit Provider Family Medicine
DX: M17.31 Unilateral post-traumatic osteoarthritis, right knee (principal)
CPT/HCPCS: 73721

== ENCOUNTER 2024-04-04 03:42 | Outpatient (CLI) | payer MEDICARE, BC, SELFPAY ==
[2024-04-04 11:04] LABS: TSH (W/Ref FT4) 0.22 uIU/mL (0.36-3.74)
[2024-04-04 12:42] LABS: FREE T4 1.27 ng/dL (0.76-1.46)
== END 2024-04-04 03:43 | disposition home or self-care (01) ==
PROVIDERS: PCP Family Medicine; Visit Provider Family Medicine
DX: E03.9 Hypothyroidism, unspecified (principal)
CPT/HCPCS: 36415; 84439; 84443

== ENCOUNTER 2024-06-24 02:42 | Outpatient (CLI) | payer MEDICARE, BC, SELFPAY ==
[2024-06-24 14:32] LABS: TSH (W/Ref FT4) 0.11 uIU/mL (0.36-3.74)
[2024-06-24 14:54] LABS: FREE T4 1.24 ng/dL (0.76-1.46)
== END 2024-06-24 02:43 | disposition home or self-care (01) ==
LOC: LBO 02:42
PROVIDERS: PCP Family Medicine; Visit Provider Family Medicine
DX: E03.9 Hypothyroidism, unspecified (principal)
CPT/HCPCS: 36415; 84439; 84443

== ENCOUNTER 2024-12-16 03:28 | Outpatient (CLI) | payer MEDICARE, BC, SELFPAY ==
[2024-12-16 09:17] LABS: TSH (W/Ref FT4) 0.15 uIU/mL (0.36-3.74)
== END 2024-12-16 03:29 | disposition home or self-care (01) ==
LOC: LBO 03:28
PROVIDERS: PCP Family Medicine; Visit Provider Family Medicine
DX: E03.9 Hypothyroidism, unspecified (principal)
CPT/HCPCS: 36415; 84439; 84443

== ENCOUNTER 2025-03-19 03:13 | Outpatient (CLI) | payer MEDICARE, BC, SELFPAY ==
[2025-03-19 08:47] LABS: TSH (W/Ref FT4) 1.54 uIU/mL (0.36-3.74)
== END 2025-03-19 03:14 | disposition home or self-care (01) ==
LOC: LBO 03:13
PROVIDERS: PCP Family Medicine; Visit Provider Family Medicine
DX: E03.9 Hypothyroidism, unspecified (principal)
CPT/HCPCS: 36415; 84443